=== PATIENT | male | born 1970 | race Caucasian/White ===

== ENCOUNTER 2016-11-21 09:17 | Emergency (ER) | payer SELFPAY ==
[~2016-11-21] VITALS: Ht 165.1 cm; Wt 79.4 kg
[~2016-11-21 09:17] MED LIST: IBUP-2213 PO
[2016-11-21 09:25] VITALS: BP 114/93
--- NOTE | 2016-11-21 09:30 | NUR ---
pt ambulated to bed 4.
[2016-11-21] MEDS ORDERED: DEXAMETHASONE 4 MG/ML VIAL PO ONE (09:35)
[2016-11-21] MEDS ORDERED: ACETAMIN/CODEINE 120/12MG-5ML 5 ML UDC PO ONE (09:35)
--- NOTE | 2016-11-21 09:35 | NUR ---
46M BIB SELF C/O WORK RELEASE AND LEFT EAR BEING "CLOGGED" X 1 WEEK; PT DENIES PAIN TO BL EARS OR BL EYES AT THIS TIME; PT DENIES VISION LOSS, VISION CHANGES, OR TRAUMA TO LEFT EAR AT THIS TIME; NO BLEEDING OR DRAINAGE NOTED TO LEFT EAR AT THIS TIME; PT A&OX4, PERRLA, BL LUNG SOUNDS CLEAR, RR EVEN/UNLABORED, SKIN IS WARM/DRY/INTACT AT THIS TIME; PT DENIES N/V/D AT THIS TIME; STEADY GAIT; PT RESTING IN BED W/ HOB ELEVATED AND IN LOWEST POSITION; POSITIONED FOR COMFORT; ER MD MADE AWARE OF STATUS. WILL CONTINUE TO MONITOR.
--- NOTE | 2016-11-21 09:40 | NUR ---
ER MD DR. DUKES EVALUATING PT AT BEDSIDE.
[2016-11-21 11:39] VITALS: BP 120/80
--- NOTE | 2016-11-21 11:39 | NUR ---
Patient discharged with v/s stable. Written and verbal after care instructions given and explained. Patient alert, oriented and verbalized understanding of instructions. Ambulatory with steady gait. All questions addressed prior to discharge. ID band removed. Patient advised to follow up with PMD. Rx of CORTISPORIN OTIC SUSPENSION given. Patient educated on indication of medication including possible reaction and side effects. Opportunity to ask questions provided and answered.
== END 2016-11-21 11:39 | disposition home or self-care (01) ==
LOC: MED 09:17
DX: H72.92 Unspecified perforation of tympanic membrane, left ear (principal); B34.9 Viral infection, unspecified
CPT/HCPCS: 36415; 87081; 87804; 99284; J1100